=== PATIENT | female | born 1980 | race Caucasian/White ===

== ENCOUNTER 2018-12-03 09:01 | Outpatient (CLI) | payer OTHER ==
--- NOTE | 2018-12-03 10:32 | RAD ---
LUMBAR SPINE THREE VIEW SERIES: INDICATIONS: Back pain. FINDINGS: Three lateral views of the lumbar spine are submitted without the presence of an AP view, limiting as sessment. Neutral lateral view reveals no evidence of acute compression fracture or subluxation. There is mult ilevel moderate degenerative change. With the utilization of flexion and extension views, there is n o discernible translational motion. IMPRESSION: Degenerative change in the lumbar spine at multiple levels without significant subluxation or transla tional motion. POS: C
--- NOTE | 2018-12-03 10:47 | MRI ---
MR the lumbar spine without contrast INDICATION: Lumbar back pain with radiation to both lower kidneys COMPARISON: Lumbar spinal radiograph dated December 03, 2018 TECHNIQUE: Multiplanar multisequence MR images were obtained of lumbar spine without IV contrast. FINDINGS: Bone marrow: Bone marrow signal intensity appears within normal limits. Distal spinal cord and conus: Normal. The conus seen to terminate at L1. Visualized retroperitoneum and paraspinal soft tissues: Normal. Vertebral levels: L5-S1: There is a broad-based disc bulge with facet hypertrophy inducing mild bilateral neural forami nal narrowing, right greater than left.. L4-5: There is a mild broad-based bulge with facet hypertrophy inducing neural foraminal encroachment . L3-4: There is a mild broad-based disc bulge and mild facet joint degenerative change. L2-3: No appreciable central canal or neuroforaminal narrowing. L1-L2: Mild broad-based disc bulge but no appreciable central canal or neural foraminal narrowing. T12-L1: No appreciable central canal or neuroforaminal narrowing. T11-T12 there is an asymmetric to the left broad-based disc bulge causing mild ventral effacement of the subarachnoid space with mild ventral contact of the spinal cord. IMPRESSION: 1. Mild central canal narrowing at T11-T12 with mild ventral contact of the spinal cord due to broad- based disc bulge. 2. Mild neural foraminal narrowing at L4-5 and L5-S1.
== END 2018-12-03 09:02 | disposition home or self-care (01) ==
LOC: SCSMRI 09:01
PROVIDERS: ATTEND Neurological Surgery
DX: M51.36 Other intervertebral disc degeneration, lumbar region (principal); M54.5 Low back pain; M47.816 Spondylosis without myelopathy or radiculopathy, lumbar region; M48.04 Spinal stenosis, thoracic region; M51.24 Other intervertebral disc displacement, thoracic region; M48.061 Spinal stenosis, lumbar region without neurogenic claudication; M48.07 Spinal stenosis, lumbosacral region
CPT/HCPCS: 72100; 72148

== ENCOUNTER 2019-06-24 09:07 | Emergency (ER) | payer OTHER ==
[2019-06-24] MEDS ORDERED: Ketorolac Tromethamine 30 MG/ML VIAL ONE (09:31)
== END 2019-06-24 10:18 | disposition home or self-care (01) ==
LOC: ERS 09:07
DX: S61.432A Puncture wound without foreign body of left hand, initial encounter (principal); F17.210 Nicotine dependence, cigarettes, uncomplicated; W56.51XA Bitten by other fish, initial encounter; Y92.828 Other wilderness area as the place of occurrence of the external cause
CPT/HCPCS: 96372; 99283; J1885